=== PATIENT | female | born 1945 | race Caucasian/White ===

== ENCOUNTER 2018-02-11 09:56 | Observation (INO) | payer OTHER ==
--- NOTE | 2018-02-11 10:10 | EDPHY ---
H & P Stated Complaint: High B/P for several weeks, mid back pain since last night. Time Seen by Provider: 02/11/18 10:09 HPI/ROS: HPI: This is a 73-year-old female who presents with Chief Complaint: High B/P for several weeks, mid back pain since last night. Location: Quality: Duration: Signs and Symptoms: no shortness of breath at rest, no shortness of breath on exertion, no cough, no chest pain, no palpitations, no lower extremity edema, no wheezing, no orthopnea, no paroxysmal nocturnal dyspnea, no fever, no injury/ trauma, no hemoptysis, no carpal pedal spasms Timing: Severity: Context: Patient has a history of hypertension, Marfan syndrome presents today with waking up this morning with elevated blood pressure of 190s/110 accompanied by midsternal pain that started in her epigastric area and radiated into her back. Patient reports that she takes Zantac in the evenings for her GERD. Last night she took losartan 50 mg and today took clonidine 0.1 mg which lowered her blood pressure to 170/92. Patient reports that she had her losartan increased from 50-100 mg on February 04. Due to elevated blood pressures in the morning and"just not feeling right" along with anterior chest pain that was nonradiating in nature, patient went to the [place] emergency room and had 2-cardiac enzymes as well as a negative CTA of the chest. Patient is scheduled to have an echocardiogram tomorrow at this facility at [facility]. Patient took 81 mg of baby aspirin yesterday evening. Dr. Durbin patient. Modifying Factors: See above Comment: ROS: A comprehensive 10 system review of systems is otherwise negative aside from elements mentioned in the history of present illness. MEDICAL/SURGICAL/SOCIAL HISTORY: Medical history: Marfans. HTN. Hyperthyroid. Gerd. Surgical history: Denies Social history: Never smoked. Retired. CONSTITUTIONAL: Anxious, petite, elderly white female, awake and alert, no obvious distress HEENT: Atraumatic and normocephalic, PERRL, EOMI. Nares patent; no rhinorrhea; no nasal mucosal edema. Tympanic membranes clear. Oropharynx clear, no exudate and moist pink mucosa. Airway patent. No lymphadenopathy. No meningismus. Cardiovascular: Normal S1/S2, regular rate, regular rhythm, without murmur rub or gallop. PULMONARY/CHEST: Symmetrical and nontender. Clear to auscultation bilaterally. Good air movement. No accessory muscle usage. ABDOMEN: Soft, nondistended, mild reproducible epigastric tenderness, no rebound, no guarding, no peritoneal signs, no masses or organomegaly. No CVAT. EXTREMITIES: 2/2 pulses, strength 5/5, no deformities, no clubbing, no cyanosis or edema. NEUROLOGICAL: no focal neuro deficits. GCS 15. SKIN: Warm and dry, pallor, no erythema. no rash. Good capillary refill. Source: Patient Exam Limitations: No limitations - Personal History Current Tetanus Diphtheria and Acellular Pertussis (TDAP): Yes - Medical/Surgical History Hx Asthma: No Hx Chronic Respiratory Disease: No Hx Diabetes: No Hx Cardiac Disease: No Hx Renal Disease: No Hx Cirrhosis: No Hx Alcoholism: No Hx HIV/AIDS: No Hx Splenectomy or Spleen Trauma: No Other PMH: Marfans. HTN. Hyperthyroid. Gerd. - Social History Smoking Status: Never smoked Constitutional: Initial Vital Signs Temperature (C) 36.4 C 02/11/18 09:57 Heart Rate 69 02/11/18 09:57 Respiratory Rate 16 02/11/18 09:57 Blood Pressure 122/75 H 02/11/18 09:57 O2 Sat (%) 96 02/11/18 09:57 O2 Delivery Mode Room Air Allergies/Adverse Reactions: No Known Allergies Allergy (Unverified 02/11/18 10:49) Home Medications: Medication Instructions Recorded Aspirin EC [Aspirin EC 81 mg (*)] 81 mg PO HS 02/23/16 Calcium Carb W/Vit D [Calcium Carb 500 mg PO DAILY 02/23/16 W/Vit D 500/200 (*)] Glucosamine Sulfate [Glucosamine 500 mg PO DAILY 02/23/16 Sulfate 500 MG (*)] Levothyroxine [Synthroid 112 mcg 112 mcg PO DAILY06 02/23/16 (*)] Losartan Potassium [Cozaar 50 mg 50 mg PO BID 02/23/16 (*)] C/E/Zn/Cu/OM3/DHA/EPA/LUT/ZEAX 1 each PO DAILY 02/11/18 [Preservision Areds 2 Softgel] [place]-3 Fatty Acids [Fish Oil 1000 1,000 mg PO DAILY 02/11/18 mg (*)] Ranitidine HCl [Zantac 75] 75 mg PO HS 02/11/18 Medical Decision Making - Diagnostics Imaging Results: Imaging Impressions Chest/Thorax CTA 02/11/18 10:19 Impression: 1. No definite pulmonary thromboemboli. 2. No aortic aneurysm or dissection. 3. Left upper lobe demonstrates 2 noncalcified nonspecific pulmonary nodules measuring 7 mm and 5 mm for which follow-up noncontrast CT chest is recommended in 6 months with continued monitoring up to 2 years to ensure stability. 4. Calcified granulomata. 5. No acute pneumonia, pleural effusion or pneumothorax. Findings and recommendations discussed with Emergency Department physician, Margot Limon at 1140 hour, 02/11/2018. Final report concurs with initial preliminary interpretation. ED Course/Re-evaluation: Vital signs reviewed and stable upon arrival. Blood pressure 122/75. Placed on director of cardiac rehabilitation. IV access and laboratory studies along with CTA chest to rule out carotid dissection Patient will likely require chest pain rule out admission. HEART score= 5 moderate risk Patient given 500 cc normal saline, IV Protonix 80 mg. Patient adamantly declines any pain medication. 1045: Notified by [place] that troponin 0.00. 1140: Called by Dr. Campo advised CT chest shows no pulmonary embolism, no dissection, but does show pulmonary nodules will need follow-up study in 6 months. ED decision to consult hospitalist for admission for chest pain rule out. Spoke with [facility] who kindly agrees to admit the patient to Dr. Delgado. This patient was seen under the supervision of my secondary supervising physician. I evaluated care for this patient with attending. Discussed this patient with Dr. Carrera who did not see the patient. Differential Diagnosis: Chest pain including but not limited to myocardial ischemia, pulmonary embolus, chest wall pain, pleural inflammation and pulmonary infectious causes. - Data Points Laboratory Results: Laboratory Results 02/11/18 10:20 02/11/18 10:20 02/11/18 02/11/18 02/11/18 10:34 10:20 10:20 WBC 5.51 10^3/uL 10^3/uL (3.80-9.50) RBC 4.69 10^6/uL 10^6/uL (4.18-5.33) Hgb 13.9 g/dL g/dL (12.6-16.3) Hct 41.2 % % (38.0-47.0) MCV 87.8 fL fL (81.5-99.8) MCH 29.6 pg pg (27.9-34.1) MCHC 33.7 g/dL g/dL (32.4-36.7) RDW 12.8 % % (11.5-15.2) Plt Count 166 10^3/uL 10^3/uL (150-400) MPV 10.4 fL fL (8.7-11.7) Neut % (Auto) 69.8 % % (39.3-74.2) Lymph % (Auto) 20.3 % % (15.0-45.0) [place] % (Auto) 7.4 % % (4.5-13.0) Eos % (Auto) 0.7 % % (0.6-7.6) Baso % (Auto) 1.6 % % (0.3-1.7) Nucleat RBC Rel Count 0.0 % % (0.0-0.2) Absolute Neuts (auto) 3.84 10^3/uL 10^3/uL (1.70-6.50) Absolute Lymphs (auto) 1.12 10^3/uL 10^3/uL (1.00-3.00) Absolute Monos (auto) 0.41 10^3/uL 10^3/uL (0.30-0.80) Absolute Eos (auto) 0.04 10^3/uL 10^3/uL (0.03-0.40) Absolute Basos (auto) 0.09 10^3/uL 10^3/uL (0.02-0.10) Absolute Nucleated RBC 0.00 10^3/uL 10^3/uL (0-0.01) Immature Gran % 0.2 % % (0.0-1.1) Immature Gran # 0.01 10^3/uL 10^3/uL (0.00-0.10) Sodium 142 mEq/L mEq/L (135-145) Potassium 4.0 mEq/L mEq/L (3.5-5.2) Chloride 109 mEq/L mEq/L (97-110) Carbon Dioxide 27 mEq/l mEq/l (22-31) Anion Gap 6 mEq/L mEq/L (6-14) BUN 15 mg/dL mg/dL (7-23) Creatinine 0.8 mg/dL mg/dL (0.6-1.0) Estimated GFR > 60 Glucose 99 mg/dL mg/dL (70-100) Calcium 9.4 mg/dL mg/dL (8.5-10.4) Total Bilirubin 0.5 mg/dL mg/dL (0.1-1.4) Conjugated Bilirubin 0.1 mg/dL mg/dL (0.0-0.5) Unconjugated Bilirubin 0.4 mg/dL mg/dL (0.0-1.1) AST 18 IU/L IU/L (14-46) ALT 24 IU/L IU/L (9-52) Alkaline Phosphatase 67 IU/L IU/L (38-126) POC Troponin I 0.00 ng/mL ng/mL (0.00-0.08) Total Protein 7.1 g/dL g/dL (6.3-8.2) Albumin 4.2 g/dL g/dL (3.5-5.0) Lipase 326 IU/L H IU/L (23-300) Medications Given: Discontinued Medications Sodium Chloride (Ns) 500 mls @ 1,000 mls/hr IV EDNOW ONE PRN Reason: Protocol Stop: 02/11/18 10:47 Last Admin: 02/11/18 10:55 Dose: 500 mls Pantoprazole Sodium (Protonix) 80 mg IVP EDNOW ONE Stop: 02/11/18 10:20 Last Admin: 02/11/18 10:55 Dose: 80 mg Point of Care Test Results: Chemistry 02/11/18 10:34 POC Troponin I 0.00 ng/mL ng/mL (0.00-0.08) Departure - Departure Disposition: [facility] Clinical Impression: Pulmonary nodule Hypertension Qualifiers: Hypertension type: essential hypertension Qualified Code(s): I10 - Essential ( primary) hypertension Chest pain Qualifiers: Chest pain type: unspecified Qualified Code(s): R07.9 - Chest pain, unspecified Condition: Fair
[2018-02-11] MEDS ORDERED: NS 500 ML IV ONE (10:18)
[2018-02-11] MEDS ORDERED: PANTOPRAZOLE SODIUM 40 MG VIAL IVP ONE (10:19)
--- NOTE | 2018-02-11 10:38 | CPEKG ---
Test Reason : OPEN Blood Pressure : / mmHG Vent. Rate : 058 BPM Atrial Rate : 057 BPM P-R Int : 194 ms QRS Dur : 082 ms QT Int : 422 ms P-R-T Axes : 066 059 081 degrees QTc Int : 415 ms Sinus rhythm LVH with secondary repolarization abnormality Confirmed by Vinh Carrera ([id number]) on 02/11/2018 10:38:05 AM Referred By: Confirmed By:Vinh Carrera
[2018-02-11 10:42] LABS: PLATELET COUNT 166 10^3/uL (150-400)
[2018-02-11] MEDS ORDERED: IOPAMIDOL (ISOVUE 370) 100 ML BTL IV ONE (11:00)
[2018-02-11] MEDS ORDERED: ONDANSETRON DISINTEGRATING 4 MG TAB PO PRN (14:53)
[2018-02-11] MEDS ORDERED: ONDANSETRON 4 MG/2 ML VIAL IVP PRN (14:53)
[2018-02-11] MEDS ORDERED: ACETAMINOPHEN 325 MG TAB PO PRN (14:53)
--- NOTE | 2018-02-11 14:56 | ECHO ---
[email or web address] [address] [address] Main: [phone] Fax: Transthoracic Echocardiogram Name: MONICA WHITLOCK MR#: [id number] Study Date: 02/11/2018 Study Time: 01:13 PM Date of : 1945 Age: 73 year(s) Height: 172.7 cm (68 in.) Weight: 56.7 kg (125 lb.) BSA: 1.67 m2 Gender: Female Examination: Echo Indication: back pain/ h/o marfan/ AR Image Quality: Adequate Contrast: Requested by: Flora Gamez BP: 138 mmHg/69 mmHg Heart Rate: Rhythm: Indication: back pain/ h/o marfan/ AR Procedure Staff Counseling Director: Shasha Suazo RDCS Reading Physician: Miguel Guerrier MD Requesting Provider: Conclusions: Normal size left ventricle. Normal global systolic LV function. EF is 61 %. No regional wall motion abnormality. Normal diastolic LV function. Trivial mitral valve regurgitation. The aortic valve is tri-leaflet. Mild to moderate aortic valve regurgitation. Normal size ascending aorta measuring 3.3 cm. Measurements: Chambers Valvular Assessment AV/MV Valvular Assessment TV/PV Normal Normal Normal Name Value Range Name Value Range Name Value Range Ao Jacki (2D): 2.2 cm (1.4 cm-2.6 AV Vmax: 1.28 m/s (1 m/s-1.7 TR Vmax: 1.93 mm/s ( - ) cm) m/s) TR PGmax: 15 mmHg ( - ) IVSd (2D): 0.8 cm (0.6 cm-1.1 AV maxP mmHg ( - ) syst. PAP: 20 mmHg ( - ) cm) AV meanP mmHg ( - ) PV Vmax: 0.79 m/s (0.6 m/s-0.9 LVDd (2D): 3.7 cm (3.9 cm-5.3 MV E Vmax: 0.54 m/s ( - ) m/s) cm) MV A Vmax: 0.32 m/s ( - ) PV PGmax: 2 mmHg ( - ) LVDs (2D): 2.5 cm (2.1 cm-4 MV E/A: 1.69 ( - ) cm) MV PHT: 0.045 s ( - ) LVPWd (2D): 0.8 cm ( - ) MVA (PHT): 4.9 s ( - ) LVOTd 1.8 cm 1.8 cm mm LVEF (2D): 61 (>=54 %) RVDd(2D): 2.6 cm (1.9 cm-3.8 cmmm) Continued Measurements: Chambers Valvular Assessment AV/MV Valvular Assessment TV/PV Patient: MONICA WHITLOCK Study Date: 02/11/2018 Page 1 of 2 01:13 PM Name Value Name Value Name Value LADs: 3.0 cm MV DecTime: 162 m/s CVP (est.): 5 mmHg MV E' Septal: 0.05 m/s MV E/E' Septal: 10.30 Additional Vessels Name Value Ao Ascendin.3 cm Inferior Vena Cava: 1.4 cm Findings: Left Ventricle: Normal size left ventricle. No LV hypertrophy. Normal global systolic LV function. EF is 61 %. No regional wall motion abnormality. Normal diastolic LV function. Right Ventricle: Normal size right ventricle. Normal RV function. Left Atrium: The left atrium is normal in size. Right Atrium: The right atrium is normal in size. Mitral Valve: The mitral valve is normal in appearance and function. Trivial mitral valve regurgitation. No mitral stenosis is present. Aortic Valve: The aortic valve is tri-leaflet. Aortic sclerosis is present. No aortic valve stenosis is present. Mild to moderate aortic valve regurgitation. Tricuspid Valve: The tricuspid valve is normal in appearance and function. Trivial tricuspid valve regurgitation. The pulmonary artery pressure is normal. Right ventricular systolic pressure measures 20mmHg. Pulmonic Valve: The pulmonic valve is normal in appearance and function. Aorta: The aorta is normal. Normal size aortic root measuring 2.2 cm. Normal size ascending aorta measuring 3.3 cm. IVC: The IVC is normal sized. Pericardium: No pericardial effusion. No pleural effusion. Exam Comments: Apical imaging is very off axis, patient very thin. (No Signature Object) Patient: MONICA WHITLOCK Study Date: 02/11/2018 Page 2 of 2 01:13 PM [id number]
--- NOTE | 2018-02-11 15:36 | GHP ---
DATE OF ADMISSION: 02/11/2018 This is a pleasant 73-year-old female with history of Marfan and hypertension presents with chest sym ptoms as well as high blood pressure. She has had high blood pressure for a long period of time. Recently, her losartan was increased from 50 daily to 50 twice daily. She might have taken 100 daily at 1 point and was having nocturnal hype rtension. She has been checking it 4 times a day. She acknowledges anxiety as playing a role in thi s. She does have Marfan's and worried that there is something wrong with her valves or her aorta that wa s causing her to have a high blood pressure. She was seen at [facility] earlier this [place] where she had a CT scan, which per report is negative. She presents back with a blood pressure t hat was elevated at 190 as well as central chest pain that is burning in nature. She does have a his tory of reflux and takes Zantac 75 at bedtime. REVIEW OF SYSTEMS: Complete 10-point review of systems conducted, negative except as noted in the HP I. PAST MEDICAL HISTORY: Hypertension, Marfan's, reflux. ALLERGIES: No known drug allergies. MEDICATIONS: P.r.n. clonidine, she has been taking somewhat, aspirin, PreserVision, calcium carbonat e, glucosamine, levothyroxine, losartan, fish oil, ranitidine. SOCIAL HISTORY: No tobacco, no alcohol. 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 FAMILY HISTORY: Parents . Brother has atrial fibrillation. PHYSICAL EXAMINATION: VITAL SIGNS: Temp 36.5, blood pressure 138/69, pulse 65, breathing 20 times a minute, 95% on room air. GENERAL: No acute distress, anxious. HEENT: Sclerae anicteric. Oropharynx clear. Mucous membranes moist. NECK: Supple. No lymphadenopathy or JVD. LUNGS: Clear to auscul tation bilaterally. HEART: S1, S2. ABDOMEN: Soft, nontender, nondistended. LOWER EXTREMITIES: Wit hout edema. Calves nontender. SKIN: Without rash. NEUROLOGIC: Exam is nonfocal. White count 5, hematocrit 41, platelets are 166,000. Sodium 142, potassium 4.0, chloride 109, bicarb 27, BUN 15, creatinine 0.8, glucose 99. LFTs normal. Troponin 0.00. Lipase slightly elevated at 3 26. CTA shows no pulmonary embolism. No aortic dissection or aneurysm. Left upper lobe nodule, quan cified granulomata. Clear lungs. EKG interpreted by me, shows sinus at 58 with normal axis and inte rvals. No ST or T-wave changes. Echocardiogram shows normal LV size and function. EF of 61%. Trivial mitral valve regurgitation. M ild aortic regurgitation. Normal size ascending aorta. I have discussed the case with Floranicola Gamez . She had a cardiac catheterization in 2016 revealing normal coronary arteries. ASSESSMENT/PLAN: A 73-year-old female with history of hypertension, here with burning chest pain and anxiety and labile blood pressures. 1. Labile blood pressures. I think that the patient is anxious and this is driving up her blood pre ssure and she is checking repeatedly and this has created a cycle of anxiety without clear clinical b enefit to her. I think for now we should continue with her losartan 50 twice daily, her blood pressu res are reasonable here. She may need another agent such as a beta joel. We will discuss that in the morning. 2. I think continuing the p.r.n. clonidine is a bad idea and I recommended that she discontinue it. 3. Chest pain. This is noncardiac chest pain. The CTA of the chest rules out large vessel injury. She has a history of normal angiogram and normal EKG. No further troponins or further workup. Her heart score is low. She gets a point for her risk factors of hypertension. 4. Anxiety. We will check a TSH. Her PCP has recommended an SSRI. I recommend it too. 5. Elevated lipase. Difficult to know what to make of this. She has normal LFTs. We will follow. She is eating without difficulty. 6. Pulmonary nodules. Recommend outpatient followup. DISPOSITION: Observation. /[id number]/MODL
[2018-02-11] MEDS: ACETAMINOPHEN 325 MG TAB PO PRN ×2 (16:14→23:06)
--- NOTE | 2018-02-11 18:17 | GCON ---
CARDIOLOGY CONSULTATION REFERRING PHYSICIAN: Camacho Delgado MD REASON FOR CONSULTATION: We were asked by Dr. Camacho Delgado to evaluate the patient for her back pain and hypertensive urgency. PRIMARY CARE PHYSICIAN: Dr. Saba Durant. PRIMARY CORPORATE GIVING MANAGER: Dr. Ty Durbin. HISTORY OF PRESENT ILLNESS: The patient is a 73-year-old female with a history of hypertension, aortic regurgitation, who is admitted with back pain and worsening blood pressure. In March, she had a slip and fall with an intracranial hemorrhage. It was at that time she was diagnosed with hypertension, with a systolic blood pressure of 210. She was started on medical therapy with losartan and hydrochlorothiazide, and this has slowly been titrated. Recently, her hydrochlorothiazide was discontinued due to her complaints of dizziness. Despite stopping the hydrochlorothiazide, she continues to experience dizziness. On Sunday night, she noted a midsternal burning that radiated to her back. She went to the [facility] and had a CTA of her chest, abdomen, and pelvis, which were all within normal limits. We do not have records of this. She was given Ativan. On Sunday and Sunday through most of the day, she felt well. On Sunday evening, she had pain in her back. She took half a Zantac and some Tums. She put a heating pad on and went to sleep. This morning, she awoke with similar symptoms. She describes it as a deep aching sensation. She checked her blood pressure, and it was 190s over 110. It was at that time she took her p.r.n. clonidine and presented to the emergency department here at [facility]. Currently, she feels well. She does note a back pain that her was able to reproduce on palpation that was similar to what she experienced tonight and this morning. She denies any exertional symptoms. She denies any PND, orthopnea, palpitations, presyncope, syncope. Other past medical history includes: 1. GERD with gastritis. This was related to Fosamax. 2. She has grrz-bh-adrjfsag AR. 3. She has Marfan syndrome that was diagnosed by physical characteristics and not by any genetic testing. PAST SURGICAL HISTORY: None. SOCIAL HISTORY: Patient is . Her is present in the room. She is a never smoker. She is a retired RN. She denies any NSAID usage. FAMILY HISTORY: Anxiety. Mother with sudden at age 57. Father with from an [place] at age 46. Brother with an [place] at age 34. Paternal grandfather with CVA at age 64. She had a cousin who at age 31 a few weeks after giving . REVIEW OF SYSTEMS: As per HPI. A complete 10-point review of systems was obtained and is negative, except for what is dictated. PHYSICAL EXAMINATION: VITAL SIGNS: BP of 138/69, heart rate of 65, respirations 22, O2 saturation 95% on room air, temp of 97.7 degrees Fahrenheit. GENERAL: She is a pleasant female, in no apparent distress. HEENT : Head is normocephalic, atraumatic. Eyes are without scleral icterus. Mucous membranes are moist. Hearing within normal limits. HEART: Regular rate and rhythm, with no rubs, gallops, or murmurs. NECK: Without carotid bruit. LUNGS: Clear to auscultation bilaterally. ABDOMEN: Soft. Normoactive bowel sounds. : No Falcon present. SKIN: Warm and dry, without edema. PSYCH: Normal mood and affect. NEURO: No focal deficits detected. LABORATORY DATA: BMP with sodium 142, potassium 4, chloride 109, CO2 27, BUN 15 , creatinine 0.8, glucose of 99, lipase 326. Troponin is 0. CBC with WBC 5.51 , hemoglobin 13.9, hematocrit 41.2, platelet count 166. DATABASE: Twelve-lead ECG personally interpreted reveals sinus rhythm with a borderline first-degree AV block, and she has LVH by voltage. CT of chest shows left upper lobe nodules, 7 mm and 5 mm. Left heart catheterization from 02/23/2016, shows normal course, with an EF of 70%. IMPRESSION AND PLAN: The patient is a 73-year-old female who presents with some atypical chest and back pain. 1. Atypical chest and back pain. She had cardiac enzymes on Sunday, 2 days ago , as well as today that are negative. She has had normal cardiac catheterization 2 years ago. She had back pain reproducible on palpation. We will continue primary prevention with blood pressure management. 2. Hypertension. She has some moderately elevated blood pressures, which potentially worsens her anxiety. We discussed different medical options, including the use of calcium channel blockers in someone with known aortic regurgitation. However, given her anxiety, she is open to trying a beta joel. We will try carvedilol 3.125 mg p.o. b.i.d. 3. Aortic regurgitation. Her echo shows mild-moderate aortic regurgitation. She will be continued on losartan for medical management. She will be followed with serial echoes. /[id number]/MODL MTDD
[2018-02-11] MEDS: CARVEDILOL 3.125 MG TAB PO SCH (18:47)
[2018-02-11] MEDS ORDERED: ASPIRIN EC 81 MG TAB PO SCH (21:00)
[2018-02-11] MEDS: LOSARTAN POTASSIUM 50 MG TAB PO SCH (23:03)
[2018-02-11] MEDS: FAMOTIDINE 20 MG TAB PO SCH (23:04)
[2018-02-12] MEDS ORDERED: LEVOTHYROXINE 112 MCG TAB PO SCH (06:00)
[2018-02-12 07:58] VITALS: BP 126/77
[2018-02-12] MEDS: LOSARTAN POTASSIUM 50 MG TAB PO SCH (08:25)
[2018-02-12] MEDS: CARVEDILOL 3.125 MG TAB PO SCH (08:25)
[2018-02-12] MEDS: FAMOTIDINE 20 MG TAB PO SCH (08:25)
[2018-02-12] MEDS ORDERED: OMEGA-3 FATTY ACIDS 1,000 MG CAP PO SCH (09:00)
[2018-02-12] MEDS ORDERED: CALCIUM CARB W/VIT D 500 MG TAB PO SCH (09:00)
[2018-02-12] MEDS ORDERED: GLUCOSAMINE SULF 500 MG CAP PO SCH (09:00)
[2018-02-12] MEDS ORDERED: PRESERVISION AREDS2 FORMULA EYE VIT 1 EACH PO SCH (09:00)
--- NOTE | 2018-02-12 09:50 | HOSPPROG ---
Hospitalist Progress Note Assessment/Plan: 73 yo F w htn, anxiety home today see dc summary Subjective: no events tele. less anxious Objective: Vital Signs Temp Pulse Resp BP Pulse Ox 36.6 C 76 19 126/77 H 93 02/12/18 07:57 02/12/18 07:57 02/12/18 07:57 02/12/18 07:57 02/12/18 07:57 02/11/18 02/12/18 02/13/18 05:59 05:59 05:59 Intake Total 1770 Output Total 0 Balance 1770 - Physical Exam Constitutional: no apparent distress, appears nourished Eyes: PERRL, anicteric sclera Ears, Nose, Mouth, Throat: moist mucous membranes, hearing normal Cardiovascular: systolic murmur Respiratory: no respiratory distress, no rales or rhonchi Gastrointestinal: normoactive bowel sounds, soft, non-tender abdomen Genitourinary: no bladder fullness, No short in urethra Skin: warm, normal color Musculoskeletal: full muscle strength Neurologic: AAOx3 ICD10 Worksheet Patient Problems: Problems Problem Status Onset Chest pain Acute Hypertension Acute Pulmonary nodule Acute
--- NOTE | 2018-02-12 13:48 | ASDISCHSUM ---
Discharge Information Plan Status:Home with No Needs Medically Cleared to Leave:02/11/2018 Discharge Date:02/12/2018 11:40 AM CM D/C Disposition:Home, Routine, Self-Care ADT D/C Disposition:Home, Routine, Self-Care Projected Discharge Date:02/12/2018 11:40 AM Transportation at D/C:Family Discharge Delay Reason: Follow-Up Date:02/12/2018 11:40 AM Discharge Slot: Final Diagnosis:anxiety, chest pain Placement Information Patient Contact Information Contact Name:YGMIGUELRALPH Relationship: Address:[address] [place] Alternate Phone: [facility]/Zip Code:[place] [address] Email: Financial Information Financial Class:Medicare Advantage Plans Primary Plan Desc:[employer] MEDICARE ADV Primary Plan Number:[id number] Secondary Plan Desc: Secondary Plan Number: Assessment Information LACE LACE Length of stay for Answers: Less than 1 day current admission Acuity / Level of Answers: No Care: Did the patient have an inpatient admission? Comorbidities - select Answers: Other Notes: HTN; GERD, anxiety all that apply # of Emergency department Answers: 1-2 visits in the last 6 months Score: 2 Date Signed: 02/12/2018 01:47 PM Electronically Signed By:Saba Witt Case Management Discharge Plan Note Case Management Discharge Discharge Order Complete? Answers: Yes Patient to Obtain Answers: via Family Medications Transportation Arranged Answers: Family/Friends Transport will Pick (Date 02/12/2018 12:00 AM & Time) Family Notified Answers: Yes Notes: in the room Discharge Comments Notes: Spoke with pt and in the room. Pt to discharge independently and is comfortable with this plan. t provide support. No CM needs noted at this time. Date Signed: 02/12/2018 01:46 PM Electronically Signed By:Saba Witt Intervention Information
--- NOTE | 2018-02-12 18:54 | GDS ---
DISCHARGE DIAGNOSES: 1. Hypertension. 2. Noncardiac chest pain, likely secondary to reflux. 3. Anxiety. 4. Marfan. 5. Atrial regurgitation. Please see admission history and physical by Dr. Camacho Delgado. The patient presented with chest pa in. She had a CTA of the chest, revealing no evidence of arterial injury. She had a coronary angiog yonis in 2016, with no evidence of coronary disease. She had a normal TSH. Her blood pressure was allison sonably well controlled. She had an echocardiogram showing intact valves, normal aortic root, but ev idence of aortic regurgitation. She had a nonischemic EKG, negative troponins. No events on telemet ry. She was discharged home today with the addition of carvedilol for improved blood pressure contro l. She was encouraged to take the SSRI that her primary care physician prescribed, and I increased h er Zantac from 75 h.s. to 150 q.h.s. I provided her with a script for that, as well as the juveilo lRubi /[id number]
== END 2018-02-12 11:40 | disposition home or self-care (01) ==
LOC: INTOOBSV 10:48 → F2W 11:52
PROVIDERS: ADMIT Internal Medicine; ATTEND Internal Medicine
DX: R07.9 Chest pain, unspecified (principal); K21.9 Gastro-esophageal reflux disease without esophagitis; I10 Essential (primary) hypertension; F41.9 Anxiety disorder, unspecified; Q87.40 Marfan syndrome, unspecified; I35.1 Nonrheumatic aortic (valve) insufficiency; R91.8 Other nonspecific abnormal finding of lung field; E86.9 Volume depletion, unspecified
CPT/HCPCS: 71275; 93005; 93306; 96361; 96374; 99285; G0378; Q9967; 84484-PO

== ENCOUNTER → 2018-07-31 | Outpatient (CLI) | payer OTHER | LOC: FIMAGING 13:38 ==